=== PATIENT | female | born 2000 | race Caucasian/White ===

== ENCOUNTER 2022-01-15 17:07 | Emergency (ER) | payer BC, SELFPAY ==
[2022-01-15 18:15] VITALS: BP 134/85; PULSE 85; RESP 18; TEMP 36.9; O2SAT 96; BMI 30.4
[2022-01-15 18:57] LABS: Strep A DNA Probe* NOT DETECTED (Not Detectd)
[2022-01-15 19:11] LABS: PCR FLU A Negative PCR FLU A (Negative); PCR FLU B Negative PCR FLU B (Negative); PCR RSV Negative PCR RSV (Negative)
[2022-01-15 19:20] LABS: SARS PCR* Negative SARS-CoV-2 (Negative)
--- NOTE | 2022-01-15 19:54 | ED.HA ---
HPI - Headache General Time Seen by Provider: 19:55 Date Seen: 01/15/22 Chief Complaint: Headache/Migraine Stated Complaint: HEAD PAIN RT EYE,DIZZY,BLURRED VISION Source: patient, family, RN notes reviewed and old records reviewed Mode of arrival: ambulatory Limitations: no limitations History of Present Illness HPI Narrative: Mirta is a very pleasant 21-year-old female with a history of migraines who comes to the emergency room for evaluation of headache. Patient notes that she developed migraines approximately a year ago but when she started on antidepressant she was doing much better. On Thursday a.m. 01/13 she developed the sudden onset of right frontal pain in her forehead. This was associated with markedly dilated pupils sensitivity to light and noise and some dizziness. She did not have a fever. She was at [facility] and went to the [place] [facility] at which time she received fluids Toradol Benadryl but did not really feel much better. At that time they also noted elevated blood pressure of 153/87. She notes that the next morning she felt fine and had no symptoms in the morning. However in the afternoon she started a thing pain in her right forehead associated with dizziness occasional racing heart. Pain would increase when she did were here today the pain continues and although it is somewhat improved she is to dizzy and lightheaded. She denies a sore throat or any congestion or cough. She denies any history of trauma denies drug use and denies to me. Related Data Home Medications Medication Instructions Recorded Confirmed sertraline 100 mg tablet 100 mg PO 01/15/22 01/15/22 Allergies Allergy/AdvReac Type Severity Reaction Status Date / Time Penicillins Allergy Severe Rash Verified 01/15/22 16:31 Review of Systems Status of ROS: Reports: 10 or more systems reviewed and unremarkable except as noted in History and below Const: Denies: fever or chills Eyes: Reports: light sensitivity; Denies: change in vision ENMT: Denies: throat pain, neck pain or difficulty swallowing Cardio: Reports: lightheadedness; Denies: chest pain, palpitations, swelling of feet/ankles or shortness of breath with exertion Resp: Denies: shortness of breath, cough or wheezing GI: Denies: abdominal pain, nausea, vomiting, diarrhea or difficulty swallowing : Denies: painful urination Musculo: Denies: neck pain Neuro: Reports: headache; Denies: weakness in extremities Endo: Denies: excessive urination Allergy/Immuno: Denies: wheezing Exam Narrative: Exam Narrative: Patient is alert and oriented. Nontoxic in appearance. Animated explanation of her symptoms. EOM is full. Pupils are equal round reactive. No nystagmus on extremes of view. She has pain with percussion over right frontal sinus. No pain over the maxillary sinus. There is no rhinitis. Oral cavity no erythema in the posterior oropharynx. In no trismus. Neck is supple without lymphadenopathy. Heart with regular rate and rhythm. Lungs are clear in all lung myers. Moving all extremities. Again nontoxic in appearance neck without any meningeal signs. Const: Vital Signs, click to edit/add: Vital Signs - 24 hr 01/15/22 18:15 Temperature 98.4 F Pulse Rate [Right Pulse Oximeter] 85 Respiratory Rate 18 Blood Pressure [Ri ght Upper Arm] 134/85 Pulse Oximetry 96 Oxygen Delivery Me thod Room Air Documenting provider has reviewed patient's vital signs: yes Eye: Direct Ophthalmoscopy: photophobia Course Course Hospital Course: Given patient's 72 hours of symptoms would recommend IV placement check of labs including CBC, comprehensive, CRP, urinalysis. Will also check influenza COVID and strep. Toradol 50 mg IV and normal saline 1 L. Benadryl 50 mg IV. Reevaluation(s) Reevaluation #1: Patient appears to be improved. She was able to sleep for a bit. Vital Signs Vital signs: Initial Vital Signs Temperature 98.4 F 01/15/22 18:15 Temperature Source Temporal Artery Scan 01/15/22 18:15 Pulse Rate 85 01/15/22 18:15 Respiratory Rate 18 01/15/22 18:15 Blood Pressure 134/85 01/15/22 18:15 Blood Pressure Mean 101 01/15/22 18:15 Blood Pressure Position Sitting 01/15/22 18:15 Pulse Oximetry 96 01/15/22 18:15 Oxygen Delivery Method 01/15/22 18:15 Vital Signs Temperature 98.4 F 01/15/22 18:15 Pulse Rate 85 01/15/22 18:15 Respiratory Rate 18 01/15/22 18:15 Blood Pressure 134/85 01/15/22 18:15 Pulse Oximetry 96 01/15/22 18:15 Oxygen Delivery Method 01/15/22 18:15 Temperature 98.4 F 01/15/22 18:15 Pulse Rate 85 01/15/22 18:15 Respiratory Rate 18 01/15/22 18:15 Blood Pressure 134/85 01/15/22 18:15 Pulse Oximetry 96 01/15/22 18:15 Oxygen Delivery Method 01/15/22 18:15 MDM - Headache MDM Narrative Medical decision making narrative: 1. Sinusitis-this involves right frontal sinus and ethmoid. Will treat with doxycycline 100 mg p.o. b.i.d. as patient has an allergy to penicillins. Recommend ibuprofen or Tylenol as needed for discomfort. Push fluids as much as part possible. Follow-up with primary MD near the end of treatment course as if symptoms are not completely resolved would recommend extended a course of antibiotics. 2. Headache-recommend Tylenol or ibuprofen as needed for pain 3. Disposition-home with parents. Return for worsening symptoms. Seek medical attention for fever, new symptoms and as needed. Medical Records Attestation: I reviewed the patient's medical records. Lab Data Attestation: I reviewed the patient's lab results. Labs: Lab Results 01/15/22 01/15/22 01/15/22 Range/Units 18:29 18:29 20:00 WBC 10.36 (4.50-11.00) K/uL RBC 5.29 H (4.00-5.20) m/uL Hgb 15.4 (12.0-16.0) gm/dL Hct 46.9 (33.0-51.0) % MCV 89 (80-100) fL MCH 29 (26-34) pg MCHC 33 (32-36) gm/dL RDW Coeff of Brandon 12.3 (11.5-15.5) % Plt Count 327 (140-440) K/uL Neut % (Auto) 67.2 (42.0-72.0) % Lymph % (Auto) 20.8 (20-44) % [place] % (Auto) 9.3 (0.0-11.0) % Eos % (Auto) 2.1 (0.0-7.0) % Baso % (Auto) 0.5 (0.0-3.0) % Neut # (Auto) 6.97 (1.7-7.0) K/uL Lymph # (Auto) 2.15 (0.90-2.90) K/uL Imperial # (Auto) 1.00 H (0.00-0.90) K/UL Eos # (Auto) 0.22 (0.00-0.50) K/uL Baso # (Auto) 0.05 (0.00-0.30) K/uL Abs Immat Gran (auto) 0.01 (0.00-0.30) K/uL Sodium (135-149) mmol/L Potassium (3.6-5.1) mmol/L Chloride (96-114) mmol/L Carbon Dioxide (20-32) mmol/L BUN (5-24) mg/dL Creatinine (0.6-1.2) mg/dL Estimated Creat Clear Estimated GFR ml/min Glucose (60-115) mg/dL Calcium (8.7-10.8) mg/dL Total Bilirubin (0.1-1.5) mg/dL AST (12-35) U/L ALT (4-35) U/L Alkaline Phosphatase (40-150) U/L C-Reactive Protein (0.5-1.0) mg/dL Total Protein (6.0-8.3) g/dL Albumin (3.3-5.0) g/dL Urine Color (Yellow) Urine Appearance (Clear) Urine pH (5.0-8.5) Ur Specific [place] (1.000-1.030) Urine Protein (Negative) Urine Glucose (UA) (Negative) Urine Ketones (Negative) Urine Blood (Negative) Urine Nitrite (Negative) Urine Bilirubin (Negative) Urine Urobilinogen (0.2-1.0) Ur Leukocyte Esterase (Negative) Urine RBC (0-2) Urine WBC (0-5) Ur Squamous Epith Cells (None-Few) Urine Bacteria (None) SARS-CoV-2 (PCR) Negative SARS-CoV-2 (Negative) Influenza Type A (PCR) Negative PCR FLU A (Negative) Influenza Type B (PCR) Negative PCR FLU B (Negative) RSV (PCR) Negative PCR RSV (Negative) Group A Strep DNA NOT DETECTED (Not Detectd) 01/15/22 01/15/22 Range/Units 20:00 20:00 WBC (4.50-11.00) K/uL RBC (4.00-5.20) m/uL Hgb (12.0-16.0) gm/dL Hct (33.0-51.0) % MCV (80-100) fL MCH (26-34) pg MCHC (32-36) gm/dL RDW Coeff of Brandon (11.5-15.5) % Plt Count (140-440) K/uL Neut % (Auto) (42.0-72.0) % Lymph % (Auto) (20-44) % [place] % (Auto) (0.0-11.0) % Eos % (Auto) (0.0-7.0) % Baso % (Auto) (0.0-3.0) % Neut # (Auto) (1.7-7.0) K/uL Lymph # (Auto) (0.90-2.90) K/uL Imperial # (Auto) (0.00-0.90) K/UL Eos # (Auto) (0.00-0.50) K/uL Baso # (Auto) (0.00-0.30) K/uL Abs Immat Gran (auto) (0.00-0.30) K/uL Sodium 140 (135-149) mmol/L Potassium 3.8 (3.6-5.1) mmol/L Chloride 99 (96-114) mmol/L Carbon Dioxide 30 (20-32) mmol/L BUN 9 (5-24) mg/dL Creatinine 0.7 (0.6-1.2) mg/dL Estimated Creat Clear 111.62 Estimated GFR 128 ml/min Glucose 95 (60-115) mg/dL Calcium 9.7 (8.7-10.8) mg/dL Total Bilirubin 0.5 (0.1-1.5) mg/dL AST 25 (12-35) U/L ALT 13 (4-35) U/L Alkaline Phosphatase 93 (40-150) U/L C-Reactive Protein 2.7 H (0.5-1.0) mg/dL Total Protein 8.2 (6.0-8.3) g/dL Albumin 5.1 H (3.3-5.0) g/dL Urine Color Yellow (Yellow) Urine Appearance Cloudy A (Clear) Urine pH 6.5 (5.0-8.5) Ur Specific [place] 1.025 (1.000-1.030) Urine Protein Negative (Negative) Urine Glucose (UA) Negative (Negative) Urine Ketones Trace A (Negative) Urine Blood Negative (Negative) Urine Nitrite Negative (Negative) Urine Bilirubin Negative (Negative) Urine Urobilinogen 4.0 (0.2-1.0) Ur Leukocyte Esterase Trace A (Negative) Urine RBC 0-2 (0-2) Urine WBC 2-5 (0-5) Ur Squamous Epith Cells Moderate A (None-Few) Urine Bacteria Moderate A (None) SARS-CoV-2 (PCR) (Negative) Influenza Type A (PCR) (Negative) Influenza Type B (PCR) (Negative) RSV (PCR) (Negative) Group A Strep DNA (Not Detectd) Imaging Data CT scan - head: Attestation: I have reviewed the pertinent imaging results. My impression: No evidence of intracranial abnormalities. Radiologist's impression: No intracranial abnormalities. Sinus CT: Attestation: I have reviewed the pertinent imaging results. My impression: Frontal sinus disease noted on CT. Radiologist's impression: Right frontal and maxillary sinus as well as ethmoid sinusitis Chest x-ray: Attestation: I have reviewed the pertinent imaging results. My impression: No acute infiltrates Radiologist's impression: No acute findings Discharge Plan Discharge Clinical Impression: Headache, Sinusitis Patient Disposition: Home w/ Parent or Adult Condition: Improved Additional Instructions: Start doxycycline. Content continue for the full 10 days. Push fluids. Ibuprofen as needed. Return to the emergency room for worsening symptoms. Prescriptions: No Action sertraline 100 mg tablet 100 mg PO Label Comments: TAKE 1 TABLET (100 MG TOTAL) BY MOUTH DAILY. Follow Up/Referrals: Reshma Alves MD [Primary Care Provider] - Stand Alone Forms: [employer] Info Instructions
--- NOTE | 2022-01-15 19:55 | CRLHL7_ITS ---
For Patients: As a result of the Century Cures Act, medical imaging exams and procedure reports are released immediately into your electronic medical record. You may view this report before your referring provider. If you have questions, please contact your health care provider. INDICATION: Right frontal pain. TECHNIQUE: CT maxillofacial without contrast. Coronal and sagittal reformats were generated. COMPARISON: CT head from 01/14/2022. FINDINGS: Facial bones: No fractures or bone lesions. Specifically the nasal bones, temporomandibular joints, maxilla, and mandible appear intact. Mild rightward deviation of the nasal septum. Orbits and globes: Unremarkable. Globes are intact. No sign of intraorbital hemorrhage or emphysema. Sinuses: Mucosal thickening of the right frontal sinus. Opacification in the right ethmoid air cells. Mild mucosal thickening along the inferior aspect of the right maxillary sinus. The other paranasal sinuses are clear. Soft tissues: Unremarkable. IMPRESSION: 1. Sinus disease in the right frontal and maxillary sinuses and right ethmoid air cells. 2. No other significant abnormality. Please note that all CT scans at this facility use dose modulation, iterative reconstruction, and/or weight-based dosing when appropriate to reduce radiation dose to as low as reasonably achievable. Dictated by Jonathan Ramirez MD @ 01/15/2022 9:07:59 PM (Electronically Signed)
--- NOTE | 2022-01-15 19:55 | CRLHL7_ITS ---
For Patients: As a result of the Cures Act, medical imaging exams and procedure reports are released immediately into your electronic medical record. You may view this report before your referring provider. If you have questions, please contact your health care provider. INDICATION: Chest pain. TECHNIQUE: Chest 2 views. COMPARISON: None. FINDINGS: Cardiovascular and mediastinum: Unremarkable. Lungs and pleural spaces: The lungs are clear. No pleural effusion or pneumothorax. Bones and soft tissues: Bilateral nipple piercings. Otherwise, unremarkable. IMPRESSION: No evidence of an acute pulmonary process. Dictated by Angel Madrigal MD @ 01/15/2022 8:46:22 PM (Electronically Signed)
--- NOTE | 2022-01-15 19:55 | CRLHL7_ITS ---
For Patients: As a result of the Century Cures Act, medical imaging exams and procedure reports are released immediately into your electronic medical record. You may view this report before your referring provider. If you have questions, please contact your health care provider. INDICATION: Right frontal pain. TECHNIQUE: CT head without contrast. Coronal and sagittal reformats were generated. COMPARISON: None. FINDINGS: CSF spaces: Within normal limits for age. Brain parenchyma and extra-axial spaces: The ponce-white differentiation is normal. No sign of mass, hemorrhage, or midline shift. No extra-axial fluid collection. Skull base and calvarium: Mild mucosal thickening of the right frontal sinus and ethmoid air cells. The other visualized paranasal sinuses and mastoid air cells demonstrate no acute or significant findings. The visualized orbits are grossly unremarkable. No skull fractures. IMPRESSION: No acute intracranial abnormality. Please note that all CT scans at this facility use dose modulation, iterative reconstruction, and/or weight-based dosing when appropriate to reduce radiation dose to as low as reasonably achievable. Dictated by Jonathan Ramirez MD @ 01/15/2022 8:28:40 PM (Electronically Signed)
[2022-01-15 20:07] LABS: Appearance Urine Cloudy (Clear); Bilirubin Urine Negative (Negative); Blood Urine Negative (Negative); Color Urine Yellow (Yellow); Glucose Urine Negative (Negative); Ketones Urine Trace (Negative); Leukocyte Esterase Urine Trace (Negative); Nitrite Urine Negative (Negative); Protein Urine Negative (Negative); Specific Gravity Urine 1.025 (1.000-1.030); pH Urine 6.5 (5.0-8.5)
[2022-01-15 20:14] LABS: Basophils Absolute Auto 0.05 K/uL (0.00-0.30); Basophils Percent Auto 0.5 % (0.0-3.0); Eosinophils Absolute Auto 0.22 K/uL (0.00-0.50); Eosinophils Percent Auto 2.1 % (0.0-7.0); Hematocrit 46.9 % (33.0-51.0); Hemoglobin* 15.4 gm/dL (12.0-16.0); Immature Granulocytes Abs Auto 0.01 K/uL (0.00-0.30); Lymphocytes Absolute Auto 2.15 K/uL (0.90-2.90); Lymphocytes Percent Auto 20.8 % (20-44); Mean Corpuscular HGB Conc 33 gm/dL (32-36); Mean Corpuscular Hemoglobin 29 pg (26-34); Mean Corpuscular Volume 89 fL (80-100); Monocytes Percent Auto 9.3 % (0.0-11.0); Neutrophils Absolute Auto 6.97 K/uL (1.7-7.0); Neutrophils Percent Auto 67.2 % (42.0-72.0); Platelet Count* 327 K/uL (140-440); RDW Coefficient of Variation % 12.3 % (11.5-15.5); Red Blood Count 5.29 m/uL (4.00-5.20); White Blood Count* 10.36 K/uL (4.50-11.00)
[2022-01-15 20:19] LABS: RBC Urine 0-2 (0-2)
[2022-01-15 20:20] LABS: Bacteria Urine Moderate; Squamous Epithelial Cell Urine Moderate (None-Few)
[2022-01-15 20:24] LABS: Slide Review Reflex No
[2022-01-15 20:27] LABS: Albumin* 5.1 g/dL (3.3-5.0); Chloride* 99 mmol/L (96-114); Sodium* 140 mmol/L (135-149)
[2022-01-15 20:28] LABS: Potassium* 3.8 mmol/L (3.6-5.1)
[2022-01-15 20:30] LABS: Alkaline Phosphatase* 93 U/L (40-150); Aspartate Amino Transferase* 25 U/L (12-35); Bilirubin Total* 0.5 mg/dL (0.1-1.5); Carbon Dioxide* 30 mmol/L (20-32); Creatinine* 0.7 mg/dL (0.6-1.2); Est. Creatinine Clearance* 111.62; Estimated Glomerular Filt Rate 128 ml/min; Total Protein* 8.2 g/dL (6.0-8.3)
[2022-01-15 20:31] LABS: Alanine Aminotransferase* 13 U/L (4-35); Blood Urea Nitrogen* 9 mg/dL (5-24); Calcium* 9.7 mg/dL (8.7-10.8); Glucose* 95 mg/dL (60-115)
[2022-01-15 20:33] LABS: C Reactive Protein* 2.7 mg/dL (0.5-1.0)
[2022-01-15] MEDS: 0.9 % SODIUM CHLORIDE 1000 ml 1,000 ML IV (20:43)
[2022-01-15] MEDS: diphenhydrAMINE 50 MG/ML inj IVP (20:43)
[2022-01-15] MEDS: KETOROLAC 15 MG/ML inj IVP (20:43)
== END 2022-01-15 21:39 | disposition home or self-care (01) ==
PROVIDERS: Emergency Provider Family Medicine; PCP Family Medicine
DX: J32.1 Chronic frontal sinusitis (principal); Z88.0 Allergy status to penicillin; Z20.822 Contact with and (suspected) exposure to COVID-19; J32.2 Chronic ethmoidal sinusitis
CPT/HCPCS: 36415; 70450; 70486; 71046; 80053; 81001; 85025; 86140; 87086; 87502; 87634; 87635; 87651; 96361; 96374; 96375; 99284; 99285; J1200; J1885

== ENCOUNTER 2024-09-07 09:05 | Outpatient (CLI) | payer OTHER, SELFPAY | END 2024-09-07 09:06 | disposition home or self-care (01) | PROVIDERS: PCP Family Medicine; Visit Provider Registered Nurse | DX: Z01.419 Encounter for gynecological examination (general) (routine) without abnormal findings (principal); R53.83 Other fatigue; Z11.4 Encounter for screening for human immunodeficiency virus [HIV]; Z11.59 Encounter for screening for other viral diseases; Z11.6 Encounter for screening for other protozoal diseases and helminthiases; Z13.21 Encounter for screening for nutritional disorder | CPT/HCPCS: 80061; 82306; 84443; 86592; 86703; 86803; 87340; 87624; 87625; 88141; 88142 ==